=== PATIENT | female | born 1930 | race Hispanic/Latino ===

== ENCOUNTER 2017-07-15 15:22 | Outpatient (CLI) | payer MEDICARE, OTHER ==
--- NOTE | 2017-07-15 16:49 | XRay Report ---
XRAY RIGHT SHOULDER THREE VIEWS: 07/15/17 15:22:00 CLINICAL: Right shoulder pain. FINDINGS: Mild osteopenia. Normal glenohumeral alignment. Mild irregularity of the greater tuberosity of the humerus and mild acromioclavicular joint arthritis. The glenohumeral joint is normal. No fracture or dislocation. No bone lesion. Normal soft tissues. IMPRESSION: Mild degenerative change.
== END 2017-07-15 15:23 | disposition home or self-care (01) ==
LOC: SPVIMAG 15:22
PROVIDERS: ATTEND Orthopaedic Surgery Sports Medicine
DX: M19.011 Primary osteoarthritis, right shoulder (principal); M85.811 Other specified disorders of bone density and structure, right shoulder